=== PATIENT | female | born 1995 | race Two or more races ===

== ENCOUNTER 2024-10-08 11:45 | Emergency (ER) | payer MEDICAID, SELFPAY ==
[2024-10-08 11:46] VITALS: BMI 31.4
[2024-10-08 11:52] VITALS: BP 127/82; PULSE 92; RESP 16; TEMP 37.3; O2SAT 100
--- NOTE | 2024-10-08 11:57 | XR_ITS ---
Examination: OB Transvaginal ultrasound of the pelvis, complete Technique: Transvaginal sonographic images pelvis performed using zambrano scale imaging Exam date and time: October 08, 2024 1230 hours INDICATIONS: Onset of pelvic pain and vaginal bleeding today FINDINGS: Uterus 9.6 cm, pole 0.3 cm corresponds to 5 week 6 day gestational age Cardiac motion 121 BPM Right uterine fundus area of fibroid degeneration 17 mm and adjacent uterine fundal mass 20 mm Anterior to the gestational sac subchorionic hemorrhage 24 x 11 x 26 mm Right ovary 3.3 cm arterial flow, 13 mm cyst with internal echoes Left ovary 2.5 cm arterial flow small follicles IMPRESSION: Viable intrauterine gestation 5 weeks 6 days Recommend short-term follow-up pelvic sonography given the subchorionic hemorrhage on this study
[2024-10-08 12:21] LABS: Basophils # (Auto) 0.1 Thou/mm3 (0.0-0.2); Basophils % (Auto) 1 % (0-2.5); Eosinophils # (Auto) 0.1 Thou/mm3 (0.0-0.5); Eosinophils % (Auto) 1 % (0-10); Hematocrit 35.8 % (36.0-46.0); Hemoglobin 12.1 g/dL (12.0-16.0); Immature Granulocytes % (Auto) 0 % (0-0); Immature Granulocytes Auto 0.01 Thou/mm3 (0.00-0.00); Lymphocytes # (Auto) 1.8 Thou/mm3 (1.0-4.8); Lymphocytes % (Auto) 27 % (10-50); Mean Corpuscular HGB Conc 33.8 g/dl (31.0-37.0); Mean Corpuscular Hemoglobin 28.7 pg (25.0-35.0); Mean Corpuscular Volume 85 fL (80-100); Monocytes # (Auto) 0.5 Thou/mm3 (0.0-0.8); Monocytes % (Auto) 8 % (0-12); Neutrophils # (Auto) 4.2 Thou/mm3 (1.8-7.7); Neutrophils % (Auto) 63 % (37-80); Nucleated Red Blood Cell % 0 /100 WBC (0); Platelet Count 345 Thou/mm3 (140-440); RDW Standard Deviation 41.4 fL (36.4-46.3); Red Blood Count 4.21 Miln/mm3 (4.00-5.20); White Blood Count 6.6 Thou/mm3 (3.6-11.0)
[2024-10-08 12:35] LABS: Collection Type, Urine Clean Catch
[2024-10-08 12:47] LABS: Bacteria,Urine Rare; Bilirubin,Urine Negative (Negative); Blood,Urine 1+ (Negative); Clarity,Urine Clear (Clear/Hazy); Color,Urine Lt-Yellow (Lt Yel-Yel); Glucose, Urine Negative (Negative); Ketones,Urine Negative (Negative); Leukocyte Esterase,Urine Positive (Negative); Nitrite,Urine Negative (Negative); Protein,Urine Negative (Neg - Trace); RBC,Urine 3 /hpf (0-3); Specific Gravity,Urine 1.025 (1.001-1.035); Squamous Epithelial Cell,Urine 8 /hpf (0-5); Urobilinogen,Urine Negative mg/dL (0.0-1.0); WBC,Urine 2 /hpf (0-5)
[2024-10-08 12:58] LABS: Alanine Aminotransferase 8 U/L (10-49); Albumin, Serum 4.2 gm/dL (3.5-5.0); Albumin/Globulin Ratio 1.7 (1.2-2.2); Alkaline Phosphatase 53 U/L (46-116); Anion Gap 10 (7-16); Aspartate Amino Transferase 12 U/L (0-34); BUN/Creatinine Ratio 19 Ratio (12-20); Bilirubin,Total 0.3 mg/dL (0.3-1.2); Blood Urea Nitrogen 13 mg/dL (9-23); Calcium 8.7 mg/dL (8.3-10.6); Calcium (Corrected) 8.7 mg/dL (8.5-10.1); Carbon Dioxide 23.9 mMol/L (20.0-31.0); Chloride 106 mMol/L (98-107); Creatinine (Component) 0.7 mg/dL (0.6-1.3); Estimated Creatinine Clearance 127.1 mL/min (>60); Globulin 2.5 gm/dL (2.3-3.5); Glucose 106 mg/dL (74-106); Osmolality,Calculated 279 (275-295); Potassium 4.3 mMol/L (3.4-5.1); Sodium 140 mMol/L (136-145); Total Protein 6.7 gm/dL (5.7-8.2); eGFR > 60 See Note
[2024-10-08 13:11] LABS: Beta HCG,Quantitative 17610 mIU/mL (<5.0)
--- NOTE | 2024-10-08 13:34 | EDNOTE_ITS ---
<Statement entered by Peyton Farooq MD - 10/19/24 01:04> As co-signing physician, I was present and available for consult prn. I concur with the plan and care as documented by the midlevel provider. ED OB Contraction Preg RMI/HPI General Chief complaint: Vaginal Bleeding Stated complaint: + PREG, VAG BLEED, BACK/ABD PAIN Time Seen by Provider: 10/08/24 11:56 Arrival date/time: 10/08/24 11:45 29-year-old female presents emergency department today for complaints of vaginal bleeding lower back pain and pelvic pain patient reports being approximate 6 weeks Limitations: no limitations Related Data Previous Rx's ?Medication ?Instructions ?Recorded ibuprofen 600 mg tablet 600 mg PO Q6H PRN pain #30 t abs 09/23/18 Allergies Allergy/AdvReac Type Severity Reaction Status Date / Time No Known Allergies Allergy Unknown Verified 10/08/24 11:49 Review of Systems Review of Systems Systems Reviewed: All systems reviewed, normal except as documented Constitutional Constitutional: Reports system reviewed and no additional complaints, except as documented, Denies fever(s) and Denies headache(s) Eyes Eyes: Reports system reviewed and no additional complaints, except as documented and Denies blurry vision ENT Ears, Nose, Mouth, and Throat: Reports system reviewed and no additional complaints, except as documented, Denies headache(s), Denies nasal congestion and Denies nasal discharge Cardiovascular Cardiovascular: Reports system reviewed and no additional complaints, except as documented, Denies chest pain and Denies dyspnea Respiratory Respiratory: Reports system reviewed and no additional complaints, except as documented, Denies chest congestion, Denies cough and Denies dyspnea Gastrointestinal Gastrointestinal: Reports system reviewed and no additional complaints, except as documented and Denies abdominal pain Genitourinary Genitourinary: Reports system reviewed and no additional complaints, except as documented and Reports abnormal vaginal bleeding Integumentary/Breasts Skin/Breast: Reports system reviewed and no additional complaints, except as documented and Denies rash Neurologic Neurologic: Reports system reviewed and no additional complaints, except as documented, Reports as per HPI and Denies headache(s) Past Medical History Past Medical History NEUROLOGIC: Negative Neurological Disorders or Seizures CARDIAC: Negative Cardiac Disorders or Congestive Heart Failure RESPIRATORY: Negative Chronic Obstructive Pulmonary Disease (COPD) GASTROINTESTINAL: Positive Gastrointestinal Disorders and Obesity GENITOURINARY: Negative Genitourinary Disorders or Renal Disease REPRODUCTIVE: Positive Previous Pregnancies; Negative Endometriosis MUSCULOSKELETAL: Negative Musculoskeletal Disorders ENDOCRINE: Negative Endocrine Disorders, Diabetes Mellitus Type 1 or Diabetes Mellitus Type 2 HEMATOLOGIC: Negative Blood Disorders PSYCHO/SOCIAL: Positive Depression (no meds) and Anxiety OTHER HISTORY: Negative Hospitalization, Autoimmune Disease, Shingles, Blood Transfusions, Anesthesia Reactions, Clostridium Difficile or Cancer Family History FAMILY HISTORY: Positive Family Cardiac Disorders, Family Cancer and Family Surgery; Negative Family Psychiatric Problems, Family Respiratory Disorders, Family Gastrointestinal Problems or Family Anesthesia Reaction Social History SMOKING STATUS: Never smoker SUBSTANCE USE: does not use ED Exam General Limitations: Present no limitations General appearance: Present alert and in no apparent distress Head Head exam: Present atraumatic Eye Eye exam: Present normal appearance, PERRL and EOMI ENT ENT exam: Present normal exam, normal oropharynx and mucous membranes moist Neck Neck exam: Present normal inspection, full ROM and trachea midline Chest Chest inspection: Present normal inspection and symmetric chest wall rise Respiratory Respiratory exam: Present normal lung sounds bilaterally Cardiovascular Cardiovascular exam: Present regular rate, normal rhythm and normal heart sounds Abdominal Exam Abdominal exam: Present soft and normal bowel sounds Extremities Exam Extremities exam: Present normal inspection and full ROM Back Exam Back exam: Present normal inspection and full ROM Neurological Exam Neurological exam: Present alert, oriented X3 and CN II-XII intact Psychiatric Psychiatric exam: Present normal affect and normal mood Skin Skin exam: Present warm, dry, intact and normal color Course Quality Measures none Orders Category Date Time Status US OB transvaginal Stat Exams 10/08/24 11:57 Completed Beta HCG,Quantitative Stat Lab 10/08/24 12:12 Completed CBC Stat Lab 10/08/24 12:12 Completed Comprehensive Metabolic Panel Stat Lab 10/08/24 12:12 Completed UA [Urinalysis] Stat Lab 10/08/24 12:22 Completed Vital Signs Vital signs: Vital Signs Temperature 99.2 F 10/08/24 11:52 Pulse Rate 92 10/08/24 11:52 Respiratory Rate 16 10/08/24 11:52 Blood Pressure 127/82 10/08/24 11:52 Pulse Oximetry (%) 100 10/08/24 11:52 Oxygen Delivery Method Room Air 10/08/24 11:52 O2 saturation 100% on room air with normal limits Vaginal Bleeding MDM Narrative MDM Narrative: 29-year-old female presents emergency department today for complaints of vaginal bleeding lower back pain and pelvic pain patient reports being approximately 6 weeks On exam patient well-appearing patient does not appear toxic no acute distress Patient discharged home in no distress to follow-up with primary care doctor in the next 24 to 48 hours and for any worsening symptoms to return to the ER immediately Patient data External records reviewed:: [facility] previous records Clinical information provided by:: patient Social determinants that could affect healthcare access:: none Patient has the following chronic illnesses:: None How is presenting disease/condition affected by chronic disease/condition?: no chronic disease Evaluation data The following diagnostics were reviewed and interpreted by me:: lab results and radiology exam(s) Lab and/or radiology exams considered but not ordered:: Labs radiology obtain Interpretation Summary: Reviewed by me Medications / Prescriptions Medications or Prescriptions considered but not ordered:: Given Medication administrations:: Given Consultations Consultation(s) initiated? (list below): No Diagnosis Vaginal Bleeding Differential Diagnosis: missed and threatened Most likely diagnosis given after review of the tests above:: Vaginal bleeding Admission Indicated Admission indicated?: not indicated Admission Request Was there a request for admission?: No Disposition Plan Disposition Plan: Discharge Discharge Attestation Discharge Attestation: The patient and all family members were given an opportunity to ask questions and understood the discharge instructions. Discharge instructions specifically effects, indications for sooner follow up or return to the emergency department, and the expected course of current diagnosis. Patient condition: Stable Discharge Plan Plan Patient Disposition: HOME (Self Care) Discharge Disposition comment: Stable Prescriptions/Referrals Prescriptions/Med Rec: No Action ibuprofen 600 mg tablet 600 mg PO Q6H PRN (Reason: pain) Qty: 30 0RF Referrals: Cody Jones MD [Primary Care Provider] - 10/11/24 Problem List Clinical Impression: Subchorionic bleed Patient/Caregiver Discharge Instructions Education Materials: Bleeding During Early Additional Instructions: Please follow up with your primary care doctor in the next 24-48hrs for any worsening symptoms return here immediately Print Language: Moroccan Stand Alone Forms: Ayse Award Info., Patient Portal Info Letter PA/KAY Supervising Physician PA/KAY Supervising Physician: dr farooq
[2024-10-08 15:41] VITALS: BP 122/77; PULSE 78
== END 2024-10-08 15:41 | disposition home or self-care (01) ==
PROVIDERS: Nurse Practitioner Primary Care; Emergency Provider Emergency Medicine; PCP Family Medicine
DX: O20.8 Other hemorrhage in early pregnancy (principal); Z3A.01 Less than 8 weeks gestation of pregnancy
CPT/HCPCS: 36415; 76817; 80053; 81001; 84702; 85025; 99284

== ENCOUNTER 2024-11-02 09:43 | Emergency (ER) | payer MEDICAID, SELFPAY ==
[2024-11-02 09:48] VITALS: BP 155/94; PULSE 96; RESP 18; TEMP 36.6; O2SAT 97
[2024-11-02 10:04] LABS: Collection Type, Urine Clean Catch; RBC,Urine 0 /hpf (0-3)
[2024-11-02 10:11] LABS: Bilirubin,Urine Negative (Negative); Blood,Urine Negative (Negative); Clarity,Urine Clear (Clear/Hazy); Color,Urine Lt-Yellow (Lt Yel-Yel); Glucose, Urine Negative (Negative); Ketones,Urine Negative (Negative); Leukocyte Esterase,Urine Negative (Negative); Nitrite,Urine Negative (Negative); Protein,Urine Negative (Neg - Trace); Specific Gravity,Urine 1.013 (1.001-1.035); Squamous Epithelial Cell,Urine < 1 /hpf (0-5); Urobilinogen,Urine Negative mg/dL (0.0-1.0); WBC,Urine 2 /hpf (0-5)
[2024-11-02 10:27] LABS: Basophils % (Auto) 0 % (0-2.5); Eosinophils # (Auto) 0.1 Thou/mm3 (0.0-0.5); Eosinophils % (Auto) 1 % (0-10); Hematocrit 35.7 % (36.0-46.0); Hemoglobin 12.1 g/dL (12.0-16.0); Immature Granulocytes % (Auto) 0 % (0-0); Immature Granulocytes Auto 0.02 Thou/mm3 (0.00-0.00); Lymphocytes # (Auto) 2.2 Thou/mm3 (1.0-4.8); Lymphocytes % (Auto) 30 % (10-50); Mean Corpuscular HGB Conc 33.9 g/dl (31.0-37.0); Mean Corpuscular Hemoglobin 28.7 pg (25.0-35.0); Mean Corpuscular Volume 85 fL (80-100); Monocytes # (Auto) 0.6 Thou/mm3 (0.0-0.8); Monocytes % (Auto) 7 % (0-12); Neutrophils # (Auto) 4.6 Thou/mm3 (1.8-7.7); Neutrophils % (Auto) 62 % (37-80); Nucleated Red Blood Cell % 0 /100 WBC (0); Platelet Count 370 Thou/mm3 (140-440); RDW Standard Deviation 39.6 fL (36.4-46.3); Red Blood Count 4.22 Miln/mm3 (4.00-5.20); White Blood Count 7.5 Thou/mm3 (3.6-11.0)
[2024-11-02 11:10] LABS: Alanine Aminotransferase 8 U/L (10-49); Albumin, Serum 4.2 gm/dL (3.5-5.0); Albumin/Globulin Ratio 1.5 (1.2-2.2); Alkaline Phosphatase 46 U/L (46-116); Anion Gap 8 (7-16); Aspartate Amino Transferase 13 U/L (0-34); BUN/Creatinine Ratio 13 Ratio (12-20); Bilirubin,Total 0.3 mg/dL (0.3-1.2); Blood Urea Nitrogen 8 mg/dL (9-23); Calcium 9.3 mg/dL (8.3-10.6); Calcium (Corrected) 9.3 mg/dL (8.5-10.1); Carbon Dioxide 23.7 mMol/L (20.0-31.0); Chloride 103 mMol/L (98-107); Creatinine (Component) 0.6 mg/dL (0.6-1.3); Globulin 2.8 gm/dL (2.3-3.5); Glucose 100 mg/dL (74-106); Osmolality,Calculated 268 (275-295); Potassium 4.3 mMol/L (3.4-5.1); Sodium 135 mMol/L (136-145); eGFR > 60 See Note
--- NOTE | 2024-11-02 11:21 | PD.EDADULT ---
ED General RME/HPI General Chief complaint: General Adult/Misc Complain Stated complaint: UNABLE TO URINATE SINCE 6AM; PREG 6WKS Time Seen by Provider: 11/02/24 09:49 Arrival date/time: 11/02/24 09:43 29-year-old female presents to the emergency department today for complaints of urinary retention patient reports is approximately 6 weeks patient reports during all of her pregnancies she developed urinary retention requiring catheterization and that her symptoms are resolved Limitations: no limitations Related Data Previous Rx's ?Medication ?Instructions ?Recorded ibuprofen 600 mg tablet 600 mg PO Q6H PRN pain #30 tabs 09/23/18 Allergies Allergy/AdvReac Type Severity Reaction Status Date / Time No Known Allergies Allergy Unknown Verified 11/02/24 09:46 Review of Systems Review of Systems Systems Reviewed: All systems reviewed, normal except as documented Constitutional Constitutional: Reports system reviewed and no additional complaints, except as documented, Denies fever(s) and Denies headache(s) Eyes Eyes: Reports system reviewed and no additional complaints, except as documented and Denies blurry vision ENT Ears, Nose, Mouth, and Throat: Reports system reviewed and no additional complaints, except as documented, Denies headache(s), Denies nasal congestion and Denies nasal discharge Cardiovascular Cardiovascular: Reports system reviewed and no additional complaints, except as documented, Denies chest pain and Denies dyspnea Respiratory Respiratory: Reports system reviewed and no additional complaints, except as documented, Denies chest congestion, Denies cough and Denies dyspnea Gastrointestinal Gastrointestinal: Reports system reviewed and no additional complaints, except as documented and Denies abdominal pain Genitourinary Genitourinary: Reports system reviewed and no additional complaints, except as documented and Reports other (Urinary retention) Integumentary/Breasts Skin/Breast: Reports system reviewed and no additional complaints, except as documented and Denies rash Neurologic Neurologic: Reports system reviewed and no additional complaints, except as documented, Reports as per HPI and Denies headache(s) Past Medical History Past Medical History NEUROLOGIC: Negative Neurological Disorders CARDIAC: Negative Cardiac Disorders ED Exam General Limitations: Present no limitations General appearance: Present alert and in no apparent distress Head Head exam: Present atraumatic, normocephalic and normal inspection Eye Eye exam: Present normal appearance, PERRL and EOMI; Absent conjunctival injection ENT ENT exam: Present normal exam, normal oropharynx and mucous membranes moist Neck Neck exam: Present normal inspection, full ROM and trachea midline Chest Chest inspection: Present normal inspection and symmetric chest wall rise Respiratory Respiratory exam: Present normal lung sounds bilaterally Cardiovascular Cardiovascular exam: Present regular rate, normal rhythm and normal heart sounds Abdominal Exam Abdominal exam: Present soft, distention, tenderness and normal bowel sounds; Absent guarding, rebound or rigidity Extremities Exam Extremities exam: Present normal inspection and full ROM Back Exam Back exam: Present normal inspection and full ROM Neurological Exam Neurological exam: Present alert, oriented X3 and CN II-XII intact Psychiatric Psychiatric exam: Present normal affect and normal mood Skin Skin exam: Present warm, dry, intact and normal color Course Quality Measures none Orders Category Date Time Status Orosco [Urinary Catheter] NOW Care 11/02/24 09:51 Completed Orosco to Leg Bag NOW Care 11/02/24 09:52 Ordered ABO/RH Type Stat Lab 11/02/24 10:01 Results Beta HCG,Quantitative Stat Lab 11/02/24 10:01 Results CBC Stat Lab 11/02/24 10:01 Completed Comprehensive Metabolic Panel Stat Lab 11/02/24 10:01 Results UA [Urinalysis] Stat Lab 11/02/24 10:00 Completed Urine Culture Stat Lab 11/02/24 10:00 Received Vital Signs Vital signs: Vital Signs Temperature 97.8 F 11/02/24 09:48 Pulse Rate 96 11/02/24 09:48 Respiratory Rate 18 11/02/24 09:48 Blood Pressure 155/94 H 11/02/24 09:48 Pulse Oximetry (%) 97 11/02/24 09:48 Oxygen Delivery Method Room Air 11/02/24 09:48 O2 saturation 97% room air within normal limits Discharge Plan Plan Patient Disposition: HOME (Self Care) Discharge Disposition comment: Stable Prescriptions/Referrals Prescriptions/Med Rec: No Action ibuprofen 600 mg tablet 600 mg PO Q6H PRN (Reason: pain) Qty: 30 0RF Referrals: No Primary/Family,Physician [Primary Care Provider] - In 1 week Problem List Clinical Impression: Acute urinary retention Patient/Caregiver Discharge Instructions Education Materials: ED Urinary Retention, Female Additional Instructions: If you do not urinate within next 6 to 8 hours need to return for replacement Orosco catheter Print Language: Lithuanian Stand Alone Forms: Ayse Award Info., Work/School Release, Patient Portal Info Letter PA/SURFACE WATER MANAGER Supervising Physician PA/SURFACE WATER MANAGER Supervising Physician: dr gaitan MDM Narrative MDM hospital course: 29-year-old female presents to the emergency department today for complaints of urinary retention patient reports is approximately 6 weeks patient reports during all of her pregnancies she developed urinary retention requiring catheterization and that her symptoms are resolved On exam patient appears to be in quite a bit of pain Orosco catheter placed patient reports 100% relief of symptoms Lab work obtained no acute emergent findings noted Initially ultrasound ordered patient reports she would like to go without the ultrasounds. Patient requested the Orosco catheter be removed prior to discharge and she reports that symptoms persist or worsen she will return Explained to the patient should her symptoms persist or worsen she must return in the next 6 to 8 hours for repeat catheterization patient states understanding Clinical Information Provided by patient Medical Records Reviewed [facility] Meds/Rx Considered, not Ordered None Chronic Illness/Social Conditions which may negatively complicate care or outcome(s)-explain: None or not applicable EKG EKG not done Lab Interpretation Labs: interpreted by me Imaging Imaging interpretation: none Medication Administration(s) none Dispositon Disposition: Discharge Home
== END 2024-11-02 11:31 | disposition home or self-care (01) ==
PROVIDERS: Nurse Practitioner Primary Care; Emergency Provider Family Medicine
DX: O26.891 Other specified pregnancy related conditions, first trimester (principal); Z3A.01 Less than 8 weeks gestation of pregnancy; R33.9 Retention of urine, unspecified
CPT/HCPCS: 51702; 36415; 80053; 81001; 84702; 85025; 86900; 86901; 87086; 99283; A4314

== ENCOUNTER 2024-11-10 14:12 | Emergency (ER) | payer MEDICAID, SELFPAY ==
[2024-11-10 14:13] VITALS: BMI 31.4
[2024-11-10 14:20] VITALS: BP 125/83; PULSE 100; RESP 20; TEMP 36.7; O2SAT 99
--- NOTE | 2024-11-10 14:26 | XR_ITS ---
Examination: Complete OB ultrasound, less than 14 weeks, transabdominal Date and time of exam: November 10, 2024 at 1518 hours INDICATIONS: Unable to urinate beginning 3 hours ago Technique: Obstetrical ultrasound images less than 14 weeks performed via transabdominal imaging Findings: A normal shaped single intrauterine gestation is present in the uterus. pole 4.3 cm corresponds to 11 weeks 1 day gestational age Cardiac motion 167 BPM Ultrasonographic survey of visible and placental structures unremarkable. Amniotic fluid volume appears appropriate for this estimated gestational age. Right ovary 3.9 cm arterial flow Left ovary 3.2 cm arterial flow IMPRESSION: Viable intrauterine gestation 11 weeks 1 day.
--- NOTE | 2024-11-10 14:27 | PD.EDRME ---
Rapid Medical Screening Exam [facility] Arrival date/time: 11/10/24 14:12 29-year-old female with no known medical history presents to the emergency room with a chief complaint of urinary retention. Patient states it has been over 5 hours since she has been able to void. Patient states she is very tender and distended. Patient is also complaining of vaginal spotting. Patient is currently 10 weeks . I have greeted and performed a focused initial assessment of this patient. A comprehensive ED assessment and evaluation of the patient, analysis of all test results, and completion of the medical decision making process will be conducted by additional ED providers. Chief Complaint: Urogenital-Female Vital signs: Vital Signs Temperature 98.1 F 11/10/24 14:20 Pulse Rate 100 11/10/24 14:20 Respiratory Rate 20 11/10/24 14:20 Blood Pressure 125/83 11/10/24 14:20 Pulse Oximetry (%) 99 11/10/24 14:20 Oxygen Delivery Method Room Air 11/10/24 14:20 Vital signs reviewed by provider: Yes
[2024-11-10 14:56] LABS: Collection Type, Urine Clean Catch
[2024-11-10 15:07] LABS: Basophils # (Auto) 0.0 Thou/mm3 (0.0-0.2); Basophils % (Auto) 0 % (0-2.5); Eosinophils # (Auto) 0.1 Thou/mm3 (0.0-0.5); Eosinophils % (Auto) 1 % (0-10); Hematocrit 34.3 % (36.0-46.0); Hemoglobin 12.2 g/dL (12.0-16.0); Immature Granulocytes Auto 0.02 Thou/mm3 (0.00-0.00); Lymphocytes # (Auto) 2.1 Thou/mm3 (1.0-4.8); Lymphocytes % (Auto) 27 % (10-50); Mean Corpuscular HGB Conc 35.6 g/dl (31.0-37.0); Mean Corpuscular Hemoglobin 29.0 pg (25.0-35.0); Mean Corpuscular Volume 82 fL (80-100); Monocytes # (Auto) 0.5 Thou/mm3 (0.0-0.8); Monocytes % (Auto) 7 % (0-12); Neutrophils # (Auto) 5.0 Thou/mm3 (1.8-7.7); Neutrophils % (Auto) 65 % (37-80); Nucleated Red Blood Cell # 0.00 Thou/mm3 (0.00-0.00); Nucleated Red Blood Cell % 0 /100 WBC (0); Platelet Count 339 Thou/mm3 (140-440); RDW Standard Deviation 38.8 fL (36.4-46.3); Red Blood Count 4.20 Miln/mm3 (4.00-5.20); White Blood Count 7.7 Thou/mm3 (3.6-11.0)
[2024-11-10 15:09] LABS: Bilirubin,Urine Negative (Negative); Blood,Urine Negative (Negative); Clarity,Urine Clear (Clear/Hazy); Color,Urine Colorless (Lt Yel-Yel); Glucose, Urine Negative (Negative); Ketones,Urine Negative (Negative); Leukocyte Esterase,Urine Negative (Negative); Nitrite,Urine Negative (Negative); PH,Urine 6.5 (5.0-7.0); Protein,Urine Negative (Neg - Trace); RBC,Urine 1 /hpf (0-3); Specific Gravity,Urine 1.009 (1.001-1.035); Squamous Epithelial Cell,Urine < 1 /hpf (0-5); Urobilinogen,Urine Negative mg/dL (0.0-1.0); WBC,Urine 1 /hpf (0-5)
[2024-11-10 15:48] LABS: Alanine Aminotransferase 10 U/L (10-49); Albumin, Serum 4.2 gm/dL (3.5-5.0); Albumin/Globulin Ratio 1.4 (1.2-2.2); Alkaline Phosphatase 47 U/L (46-116); Anion Gap 6 (7-16); Aspartate Amino Transferase 13 U/L (0-34); BUN/Creatinine Ratio 9 Ratio (12-20); Bilirubin,Total 0.3 mg/dL (0.3-1.2); Blood Urea Nitrogen 6 mg/dL (9-23); Calcium 9.3 mg/dL (8.3-10.6); Calcium (Corrected) 9.3 mg/dL (8.5-10.1); Carbon Dioxide 22.6 mMol/L (20.0-31.0); Chloride 108 mMol/L (98-107); Creatinine (Component) 0.7 mg/dL (0.6-1.3); Estimated Creatinine Clearance 136.2 mL/min (>60); Globulin 2.9 gm/dL (2.3-3.5); Glucose 91 mg/dL (74-106); Osmolality,Calculated 271 (275-295); Potassium 4.0 mMol/L (3.4-5.1); Sodium 137 mMol/L (136-145); Total Protein 7.1 gm/dL (5.7-8.2); eGFR > 60 See Note
[2024-11-10 16:04] LABS: Beta HCG,Quantitative 70439 mIU/mL (<5.0)
--- NOTE | 2024-11-10 18:31 | EDNOTE_ITS ---
ED Female Urogenital RME/HPI General Chief complaint: Urogenital-Female Stated complaint: FEELING THE NEED TO PEE BUT CANT 10 WKS OB Arrival date/time: 11/10/24 14:12 29-year-old SAB2 female with a past medical history of 2 spontaneous miscarriages as well as acute urinary retention with previous , presents to the ED with a complaint of inability to urinate for the past 5 hours. She states that she woke up this morning and was able to urinate normally, the second time she urinated today she just had a very slow stream, and the third time she attempted to urinate but only a few drops came out. With her previous episode of urinary retention with her previous , she states she never followed up with her primary care physician for a referral to a urologist. When she presented to the ED today, a Orosco catheter was placed with an immediate return of 1500 mL of clear light yellow urine (per nursing staff in the [facility] area. RME / HPI RME / HPI Narrative: 11/10/24 14:12 29-year-old female with no known medical history presents to the emergency room with a chief complaint of urinary retention. Patient states it has been over 5 hours since she has been able to void. Patient states she is very tender and distended. Patient is also complaining of vaginal spotting. Patient is currently 10 weeks . I have greeted and performed a focused initial assessment of this patient. A comprehensive ED assessment and evaluation of the patient, analysis of all test results, and completion of the medical decision making process will be conducted by additional ED providers. Related Data Previous Rx's ?Medication ?Instructions ?Recorded ibuprofen 600 mg tablet 600 mg PO Q6H PRN pain #30 t abs 09/23/18 Allergies Allergy/AdvReac Type Severity Reaction Status Date / Time No Known Allergies Allergy Unknown Verified 11/10/24 14:16 Review of Systems Review of Systems Systems Reviewed: All systems reviewed, normal except as documented Past Medical History Past Medical History NEUROLOGIC: Negative Neurological Disorders or Seizures CARDIAC: Negative Cardiac Disorders or Congestive Heart Failure RESPIRATORY: Negative Chronic Obstructive Pulmonary Disease (COPD) GASTROINTESTINAL: Positive Gastrointestinal Disorders and Obesity GENITOURINARY: Negative Genitourinary Disorders or Renal Disease REPRODUCTIVE: Positive Previous Pregnancies (urinary retention with previous pregnancies); Negative Endometriosis MUSCULOSKELETAL: Negative Musculoskeletal Disorders ENDOCRINE: Negative Endocrine Disorders, Diabetes Mellitus Type 1 or Diabetes Mellitus Type 2 HEMATOLOGIC: Negative Blood Disorders PSYCHO/SOCIAL: Positive Depression and Anxiety OTHER HISTORY: Negative Hospitalization, Autoimmune Disease, Shingles, Blood Transfusions, Anesthesia Reactions, Clostridium Difficile or Cancer Family History FAMILY HISTORY: Positive Family Cardiac Disorders, Family Cancer and Family Surgery; Negative Family Psychiatric Problems, Family Respiratory Disorders, Family Gastrointestinal Problems or Family Anesthesia Reaction Social History SMOKING STATUS: Never smoker SUBSTANCE USE: does not use Course Orders Category Date Time Status Orosco [Urinary Catheter] QS Care 11/10/24 14:26 Active Miscellaneous Nursing Order NOW Care 11/10/24 18:27 Active US OB <= 14 weeks fetus Stat Exams 11/10/24 14:26 Completed ABO/RH Type Stat Lab 11/10/24 14:50 Completed Beta HCG,Quantitative Stat Lab 11/10/24 14:26 Completed CBC Stat Lab 11/10/24 14:50 Completed CMP [Comprehensive Metabolic Panel] Stat Lab 11/10/24 14:26 Completed UA [Urinalysis] Stat Lab 11/10/24 14:50 Completed Vital Signs Vital signs: Vital Signs Temperature 98.1 F 11/10/24 14:20 Pulse Rate 100 11/10/24 14:20 Respiratory Rate 20 11/10/24 14:20 Blood Pressure 125/83 11/10/24 14:20 Pulse Oximetry (%) 99 11/10/24 14:20 Oxygen Delivery Method Room Air 11/10/24 14:20 Discharge Plan Plan Patient Disposition: HOME (Self Care) Discharge Disposition comment: Stable and improved Prescriptions/Referrals Prescriptions/Med Rec: No Action ibuprofen 600 mg tablet 600 mg PO Q6H PRN (Reason: pain) Qty: 30 0RF Referrals: No Primary/Family,Physician [Primary Care Provider] - In 1 week Problem List Clinical Impression: Acute urinary retention Patient/Caregiver Discharge Instructions Education Materials: ED Urinary Retention, Female Additional Instructions: Please follow-up with your primary care physician in 24 hours for recheck and possible removal of the urinary catheter. You will need a referral to a urologist to determine the exact cause of this continued episodes of urinary retention. Return to the ED for any new or worsening symptoms. Print Language: Swedish Stand Alone Forms: Ayse Award Info., Patient Portal Info Letter PA/BLOWER MECHANIC Supervising Physician PA/KAY Supervising Physician: Dr. Shabazz
[2024-11-10 18:59] VITALS: BP 142/80; PULSE 95; RESP 16; TEMP 37.2; O2SAT 98
[2024-11-10 19:04] VITALS: BP 142/80; PULSE 95; RESP 18; TEMP 37.2; O2SAT 98
== END 2024-11-10 18:59 | disposition home or self-care (01) ==
PROVIDERS: Nurse Practitioner Family; Emergency Provider Emergency Medicine
DX: O99.891 Other specified diseases and conditions complicating pregnancy (principal); R33.9 Retention of urine, unspecified; Z3A.10 10 weeks gestation of pregnancy
CPT/HCPCS: 51702; 36415; 76801; 80053; 81001; 84702; 85025; 86900; 86901; 99284; A4314

== ENCOUNTER 2024-12-01 18:41 | Emergency (ER) | payer MEDICAID, SELFPAY ==
[2024-12-01 18:52] VITALS: BP 120/83; PULSE 110; RESP 20; TEMP 36.6; O2SAT 100
--- NOTE | 2024-12-01 19:12 | EDNOTE_ITS ---
<Statement entered by Peyton Farooq MD - 12/01/24 22:22> As co-signing physician, I was present and available for consult prn. I concur with the plan and care as documented by the midlevel provider. ED Female Urogenital RME/HPI General Chief complaint: General Adult/Misc Complain Stated complaint: UNABLE TO URINATE SINCE 3PM; PREG 14W4D Time Seen by Provider: 12/01/24 19:00 Arrival date/time: 12/01/24 18:41 29F with history of urinary retention presents to ED with 4 hours of urinary retention. Patient is currently 14 weeks , but denies vaginal bleeding. Limitations: no limitations Related Data Previous Rx's ?Medication ?Instructions ?Recorded ibuprofen 600 mg tablet 600 mg PO Q6H PRN pain #30 t abs 09/23/18 Allergies Allergy/AdvReac Type Severity Reaction Status Date / Time No Known Allergies Allergy Unknown Verified 12/01/24 18:44 Review of Systems Genitourinary Genitourinary: Reports as per HPI and Reports difficulty voiding Past Medical History Past Medical History NEUROLOGIC: Negative Neurological Disorders or Seizures CARDIAC: Negative Cardiac Disorders or Congestive Heart Failure RESPIRATORY: Negative Chronic Obstructive Pulmonary Disease (COPD) GASTROINTESTINAL: Positive Gastrointestinal Disorders and Obesity GENITOURINARY: Negative Genitourinary Disorders or Renal Disease REPRODUCTIVE: Positive Previous Pregnancies (urinary retention with previous pregnancies); Negative Endometriosis MUSCULOSKELETAL: Negative Musculoskeletal Disorders ENDOCRINE: Negative Endocrine Disorders, Diabetes Mellitus Type 1 or Diabetes Mellitus Type 2 HEMATOLOGIC: Negative Blood Disorders PSYCHO/SOCIAL: Positive Depression and Anxiety OTHER HISTORY: Negative Hospitalization, Autoimmune Disease, Shingles, Blood Transfusions, Anesthesia Reactions, Clostridium Difficile or Cancer Family History FAMILY HISTORY: Positive Family Cardiac Disorders, Family Cancer and Family Surgery; Negative Family Psychiatric Problems, Family Respiratory Disorders, Family Gastrointestinal Problems or Family Anesthesia Reaction Social History SMOKING STATUS: Never smoker SUBSTANCE USE: does not use ED Exam General Limitations: Present no limitations General appearance: Present alert and in no apparent distress Head Head exam: Present atraumatic Eye Eye exam: Present normal appearance, PERRL and EOMI ENT ENT exam: Present normal exam, normal oropharynx and mucous membranes moist Neck Neck exam: Present normal inspection, full ROM and trachea midline Chest Chest inspection: Present normal inspection and symmetric chest wall rise Respiratory Respiratory exam: Present normal lung sounds bilaterally Cardiovascular Cardiovascular exam: Present regular rate, normal rhythm and normal heart sounds Abdominal Exam Abdominal exam: Present soft and normal bowel sounds Extremities Exam Extremities exam: Present normal inspection and full ROM Back Exam Back exam: Present normal inspection and full ROM Neurological Exam Neurological exam: Present alert, oriented X3 and CN II-XII intact Psychiatric Psychiatric exam: Present normal affect and normal mood Skin Skin exam: Present warm, dry, intact and normal color Course Quality Measures none Orders Category Date Time Status Catheter [Urinary Catheter] QS Care 12/01/24 20:27 Active [place] to Leg Bag Routine Care 12/01/24 20:27 Ordered Urinalysis Stat Lab 12/01/24 19:20 Completed Urine Culture Stat Lab 12/01/24 19:20 Received Vital Signs Vital signs: Vital Signs Temperature 97.9 F 12/01/24 18:52 Pulse Rate 110 H 12/01/24 18:52 Respiratory Rate 20 12/01/24 18:52 Blood Pressure 120/83 12/01/24 18:52 Pulse Oximetry (%) 100 12/01/24 18:52 Oxygen Delivery Method Room Air 12/01/24 18:52 O2 at 100% on RA and WNLs Urogenital - Female MDM Narrative MDM Narrative:: 29F with history of urinary retention presents to ED with 4 hours of urinary retention. Patient is currently 14 weeks , but denies vaginal bleeding. Physical exam reveals uncomfortable appearing female. Patient is afebrile and alert. UA clean. Patient decided to go home to [place]. Patient data External records reviewed:: [facility] previous records Clinical information provided by:: patient Social determinants that could affect healthcare access:: none Patient has the following chronic illnesses:: none How is presenting disease/condition affected by chronic disease/condition?: no chronic disease Evaluation data The following diagnostics were reviewed and interpreted by me:: lab results Lab and/or radiology exams considered but not ordered:: ordered Interpretation Summary: above Medications / Prescriptions Medications or Prescriptions considered but not ordered:: not ordered Medication administrations:: n/a Consultations Consultation(s) initiated? (list below): No Diagnosis Urogenital Female Differential Diagnosis: urinary tract infection, bacterial vaginosis, trichomoniasis, cervicitis, ovarian cyst, vaginitis, ruptured ovarian cyst, cyst of Bartholin's gland, cystitis, dysmenorrhea and other (urinary retention) Most likely diagnosis given after review of the tests above:: urinary retention Admission Indicated Admission indicated?: not indicated Admission Request Was there a request for admission?: No Disposition Plan Disposition Plan: Discharge Discharge Attestation Discharge Attestation: The patient and all family members were given an opportunity to ask questions and understood the discharge instructions. Discharge instructions specifically effects, indications for sooner follow up or return to the emergency department, and the expected course of current diagnosis. Patient condition: Stable Discharge Plan Plan Patient Disposition: HOME (Self Care) Discharge Disposition comment: Stable Prescriptions/Referrals Prescriptions/Med Rec: No Action ibuprofen 600 mg tablet 600 mg PO Q6H PRN (Reason: pain) Qty: 30 0RF Referrals: Morteza Carnes MD [Primary Care Provider] - In 1 week Problem List Clinical Impression: Acute urinary retention Patient/Caregiver Discharge Instructions Education Materials: ED Urinary Retention, Female Additional Instructions: Please follow-up with PCP within 24-48 hours and return immediately if symptoms worsen. Recommend getting urology referral to find out what's causing retention. Print Language: Sammarinese Stand Alone Forms: Patient Portal Info Letter SEHRMAN/KAY Supervising Physician RANDY Supervising Physician: Dr. Farooq
[2024-12-01 19:28] LABS: Collection Type, Urine Catheter
[2024-12-01 19:31] LABS: Bacteria,Urine Rare; Bilirubin,Urine Negative (Negative); Blood,Urine Negative (Negative); Clarity,Urine Clear (Clear/Hazy); Color,Urine Lt-Yellow (Lt Yel-Yel); Glucose, Urine Negative (Negative); Ketones,Urine Negative (Negative); Leukocyte Esterase,Urine Negative (Negative); Nitrite,Urine Negative (Negative); PH,Urine 6.0 (5.0-7.0); Protein,Urine Negative (Neg - Trace); RBC,Urine 1 /hpf (0-3); Specific Gravity,Urine 1.016 (1.001-1.035); Squamous Epithelial Cell,Urine < 1 /hpf (0-5); Urobilinogen,Urine Negative mg/dL (0.0-1.0); WBC,Urine 3 /hpf (0-5)
[2024-12-01 20:39] VITALS: BP 110/62; PULSE 78; RESP 16; TEMP 36.6; O2SAT 100
== END 2024-12-01 20:40 | disposition home or self-care (01) ==
PROVIDERS: Physician Assistant; Emergency Provider Emergency Medicine; PCP Student in an Organized Health Care Education/Training Program
DX: O26.891 Other specified pregnancy related conditions, first trimester (principal); Z3A.14 14 weeks gestation of pregnancy
CPT/HCPCS: 51702; 81001; 87086; 99283; A4314

== ENCOUNTER 2025-03-20 09:35 | Observation (INO) | payer MEDICAID, SELFPAY ==
[2025-03-20] VITALS (27 sets, daily range): BP systolic 125; BP diastolic 73–79; PULSE 78–130; RESP 18–98; TEMP 36.7; O2SAT 97–100; BMI 35.6
--- NOTE | 2025-03-20 10:46 | XR_ITS ---
Examination: OB Transvaginal ultrasound of the pelvis, limited Technique: Transvaginal sonographic images pelvis performed using zambrano scale imaging Exam date and time: March 20, 2025, 1113 hours INDICATIONS: Pelvic pressure and pain today, unknown cervical length FINDINGS: Cervix 4.1 cm, closed 8 mm cervical cyst IMPRESSION: Cervix 4.1 cm closed.
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
== END 2025-03-20 12:59 | disposition home or self-care (01) ==
PROVIDERS: Admitting Provider Obstetrics & Gynecology; PCP Family Medicine; Visit Provider Obstetrics & Gynecology
DX: O9A.213 Injury, poisoning and certain other consequences of external causes complicating pregnancy, third trimester (principal); S36.30XA Unspecified injury of stomach, initial encounter; Z3A.30 30 weeks gestation of pregnancy; W50.0XXA Accidental hit or strike by another person, initial encounter
CPT/HCPCS: 59025; 59899; 76817